=== PATIENT | male | born 1975 | race Caucasian/White ===

== ENCOUNTER 2018-05-12 07:43 | Emergency (ER) | payer SELFPAY ==
[~2018-05-12] VITALS: Ht 162.6 cm; Wt 141.1 kg
[~2018-05-12 07:43] MED LIST: B/P MEDICATION PO; CEPH-507 PO; CLIN150C2 PO; CLIN300C3 PO; METO-370 PO; MTF500T PO; SULF1TAB35 PO; TRAM50TA2 PO
--- OUTSIDE RECORDS SUMMARY | 2018-05-12 07:52 | XMS REPORT ---
Author Author DYANA FAGAN [facility] Address [address] [place] [address] Care Team Providers Care Automotive Service Cashier Name Role Phone DYANA FAGAN Unavailable PROBLEMS Type Condition ICD9-CM Code OIC23-FZ Code Onset Dates Condition Status SNOMED Code Problem Essential (primary) hypertension I10 Active 31944574 Problem Hypertension I10 Active 21536186 Problem Psoriasis L40.9 Active 8094329 ALLERGIES No Known Allergies ENCOUNTERS Encounter Location Date Diagnosis [facility] [address] [id number] Aug, Dental examination Z01.[address] [address] Aug, Dental abscess K04.7 and Hypertension I10 [facility] IN [facility] [address] [address] Aug, Essential (primary) hypertension I10 and Tooth abscess K04.[address] [address] Jan, Cellulitis of left lower extremity L03.116 and Essential ( primary) hypertension I10 [place] [address] [address] June, Encounter for PPD test Z11.1 ; Essential (primary) hypertension I10 and Generalized psoriasis L40.[address] [address] May, Elevated blood pressure I10 [place] [address] [address] May, Impacted cerumen H61.20 ; Essential (primary) hypertension I10 ; Generalized psoriasis L40.1 and Type 2 diabetes mellitus without complications E11.9 [facility] [address] [facility] [id number] [place] [address] May, Sore throat J02.9 ; Elevated blood pressure I10 and Acute streptococcal pharyngitis J02.0 IMMUNIZATIONS No Known Immunizations SOCIAL HISTORY Never Assessed REASON FOR VISIT tooth abscess started a couple weeks ago JStrasserRN PLAN OF CARE Activity Details Follow Up prn Reason: VITAL SIGNS Height 64 in 2016-09-06 Weight 283.8 lbs 2016-09-06 Temperature 98.3 degrees Fahrenheit 2016-09-06 Heart Rate 70 bpm 2016-09-06 Respiratory Rate 22 2016-09-06 BMI 48.71 kg/m2 2016-09-06 Blood pressure systolic 196 mmHg 2016-09-06 Blood pressure diastolic 114 mmHg 2016-09-06 MEDICATIONS Medication Instructions Dosage Frequency Start Date End Date Duration Status Lisinopril 20 mg Orally Once a day 1 tablet 24h Jan, 30 days Active Amoxicillin 500 MG Orally every 8 hrs 1 capsule 8h Aug, Aug, 7 days Active RESULTS No Results PROCEDURES No Known procedures INSTRUCTIONS MEDICATIONS ADMINISTERED No Known Medications MEDICAL (GENERAL) HISTORY Type Description Date Medical History hypertension Medical History type II diabetes Medical History psoriasis Surgical History Tubes in ears Surgical History Tonsillectomy
--- OUTSIDE RECORDS SUMMARY | 2018-05-12 07:52 | XMS REPORT ---
Author GREGORIO Wang [facility] eClinicalWorks Address Unknown Phone Unavailable Care Team Providers Care Casing Crew Pusher Name Role Phone GREGORIO JAVED CP Unavailable Allergies, Adverse Reactions, Alerts Substance Reaction Event Type N.K.D.A. Info Not Available Non Drug Allergy Problems Problem Type Condition Code Onset Dates Condition Status Assessment Generalized psoriasis L40.1 Active Assessment Type 2 diabetes mellitus without complications E11.9 Active Problem Generalized psoriasis L40.1 Active Problem Type 2 diabetes mellitus without complications E11.9 Active Problem Essential (primary) hypertension I10 Active Assessment Impacted cerumen H61.20 Active Assessment Essential (primary) hypertension I10 Active Problem Hypertension I10 Active Problem Psoriasis L40.9 Active Medications Medication Code System Code Instructions Start Date End Date Status Dosage Amoxicillin [facility] [address]-25 500 MG Orally twice a day May 25, 2015 June 04, 2015 1 tablet Lisinopril [facility] [address]-65 20 mg Orally Once a day May 25, 2015 1 tablet Procedures Procedure Coding System Code Date LIPID PANEL CPT-4 26507 May 27, 2015 GLYCATED HEMOGLOBIN TEST CPT-4 26522 May 27, 2015 COMPREHEN METABOLIC PANEL CPT-4 45184 May 27, 2015 VENIPUNCT, ROUTINE* CPT-4 95463 May 27, 2015 Office Visit, New Pt., Level 4 CPT-4 95069 May 27, 2015 Vital Signs Date/Time: May 27, 2015 Temperature 98.3 F Weight 290.6 lbs Height 64 in BMI 49.88 Index Blood Pressure Diastolic 90 mmHg Blood Pressure Systolic 158 mmHg Cardiac Monitoring Heart Rate 88 bpm Results Name Result Date Reference Range Unit Abnormality Flag LIPID PANEL ----HDL Cholesterol 28 86374911 >39 mg/dL L ----VLDL Cholesterol Johann 21 86208811 5-40 mg/dL ----LDL Cholesterol Calc 120 49694156 0-99 mg/dL H ----Cholesterol, Total 169 20150527 100-199 mg/dL ----Triglycerides 106 20061069 0-149 mg/dL A1C (IN HOUSE) ----A1C IN HOUSE 5.7% 20150527 4.3 - 5.6 % ----Previous A1c none available [id number] ----Lot [id number] ----Exp date Apr [id number] ROUTINE VENIPUNCTURE Summary Purpose eClinicalWorks Submission
--- OUTSIDE RECORDS SUMMARY | 2018-05-12 07:52 | XMS REPORT ---
Author Author GREGORIO JAVED Organization [facility] Address [address] [place] [address] Care Team Providers Care Home Energy Consultant Name Role Phone GREGORIO JAVED Unavailable PROBLEMS Type Condition ICD9-CM Code [id number] Code Onset Dates Condition Status SNOMED Code Problem Essential (primary) hypertension I10 Active 02670805 Problem Hypertension I10 Active 60808853 Problem Psoriasis L40.9 Active 2812913 ALLERGIES No Known Allergies ENCOUNTERS Encounter Location Date Diagnosis [facility] [address] [id number] Aug, Dental examination Z01.20 [facility] [address] [place] [address] Aug, Dental abscess K04.7 and Hypertension I10 [facility] [address] [address] Aug, Essential (primary) hypertension I10 and Tooth abscess K04.7 [facility] [address] [address] Jan, Cellulitis of left lower extremity L03.116 and Essential ( primary) hypertension I10 [facility] [address] [address] June, Encounter for PPD test Z11.1 ; Essential (primary) hypertension I10 and Generalized psoriasis L40.[address] [address] May, Elevated blood pressure I10 [facility] [address] [place] [address] May, Impacted cerumen H61.20 ; Essential (primary) hypertension I10 ; Generalized psoriasis L40.1 and Type 2 diabetes mellitus without complications E11.9 [facility] [address] [facility] [id number] [place] [address] May, Sore throat J02.9 ; Elevated blood pressure I10 and Acute streptococcal pharyngitis J02.0 IMMUNIZATIONS No Known Immunizations SOCIAL HISTORY Never Assessed REASON FOR VISIT hypertension- Rhina SCHWARZ PLAN OF CARE Activity Details Follow Up 2 Months Reason: VITAL SIGNS Height 64 in 2016-09-07 Weight 283.8 lbs 2016-09-07 Temperature 99.0 degrees Fahrenheit 2016-09-07 Heart Rate 82 bpm 2016-09-07 Respiratory Rate 20 2016-09-07 BMI 48.71 kg/m2 2016-09-07 Blood pressure systolic 176 mmHg 2016-09-07 Blood pressure diastolic 116 mmHg 2016-09-07 MEDICATIONS Medication Instructions Dosage Frequency Start Date End Date Duration Status Amoxicillin 500 MG Orally every 8 hrs 1 capsule 8h Aug, 7 days Active Lisinopril 20 mg Orally Once a day 1 tablet 24h Jan, 30 days Active RESULTS No Results PROCEDURES No Known procedures INSTRUCTIONS MEDICATIONS ADMINISTERED No Known Medications MEDICAL (GENERAL) HISTORY Type Description Date Medical History hypertension Medical History type II diabetes Medical History psoriasis Surgical History Tubes in ears Surgical History Tonsillectomy
--- OUTSIDE RECORDS SUMMARY | 2018-05-12 07:52 | XMS REPORT ---
Author Author DARELL Mendoza Organization [facility] Address Unknown Care Team Providers Care Sand Digger Name Role Phone DARELL Mendoza Unavailable PROBLEMS Type Condition ICD9-CM Code [id number] Code Onset Dates Condition Status SNOMED Code Problem Type 2 diabetes mellitus without complications E11.9 Active 931395344 Problem Hypertension I10 Active 51214144 Assessment Elevated blood pressure I10 May, Active 77941689 Assessment Acute streptococcal pharyngitis J02.0 May, Active 63632860 Problem Psoriasis L40.9 Active 5173827 Assessment Sore throat J02.9 May, Active 038455500 ALLERGIES Substance Reaction Event Type Date Status N.K.D.A. Unknown Non Drug Allergy May, Unknown SOCIAL HISTORY No smoking Hx information available PLAN OF CARE VITAL SIGNS Height 64 in 2015-05-25 Weight 291.2 lbs 2015-05-25 Heart Rate 88 bpm 2015-05-25 Respiratory Rate 20 2015-05-25 BMI 49.98 kg/m2 2015-05-25 Blood pressure systolic 168 mmHg 2015-05-25 Blood pressure diastolic 108 mmHg 2015-05-25 MEDICATIONS Medication Instructions Dosage Frequency Start Date End Date Duration Status Lisinopril 20 mg Orally Once a day 1 tablet 24h May, 10 days Active Amoxicillin 500 MG Orally twice a day 1 tablet 12h May, May, 10 days Active RESULTS No Results PROCEDURES Procedure Date Ordered Related Diagnosis Body Site STREP A ASSAY W/OPTIC May 25, 2015 Office Visit, New Pt., Level 3 May 25, 2015 IMMUNIZATIONS No Known Immunizations
--- OUTSIDE RECORDS SUMMARY | 2018-05-12 07:52 | XMS REPORT ---
Author Author NATALIE VLILEDA [facility] IN [facility] Address [address] [place] [address] Care Team Providers Care District Court Bailiff Name Role Phone CHRISTIANAVILMA TORRESY Unavailable PROBLEMS Type Condition ICD9-CM Code DYB74-BL Code Onset Dates Condition Status SNOMED Code Problem Essential (primary) hypertension I10 Active 17124454 Problem Hypertension I10 Active 73715114 Problem Psoriasis L40.9 Active 7200926 ALLERGIES No Known Allergies ENCOUNTERS Encounter Location Date Diagnosis [facility] IN [facility] [address] [address] Dec, Cough R05 ; Acute nasopharyngitis J00 and BMI 50.0-59.9, adult Z68.43 [facility] [address] [id number] Aug, Dental examination Z01.20 [facility] [address] [address] Aug, Dental abscess K04.7 and Hypertension I10 [facility] IN [facility] [address] [address] Aug, Essential (primary) hypertension I10 and Tooth abscess K04.7 [facility] [address] [address] Jan, Cellulitis of left lower extremity L03.116 and Essential ( primary) hypertension I10 [facility] [address] [address] June, Encounter for PPD test Z11.1 ; Essential (primary) hypertension I10 and Generalized psoriasis L40.1 [facility] [address] [address] May, Elevated blood pressure I10 [facility] [address] [facility] [id number] [place] [address] May, Impacted cerumen H61.20 ; Essential (primary) hypertension I10 ; Generalized psoriasis L40.1 and Type 2 diabetes mellitus without complications E11.9 [facility] IN [facility] [address] [facility] [id number] [place] [address] May, Sore throat J02.9 ; Elevated blood pressure I10 and Acute streptococcal pharyngitis J02.0 IMMUNIZATIONS No Known Immunizations SOCIAL HISTORY Never Assessed REASON FOR VISIT cough x1 week; coughed hard last night and pulled something in his abdomen/ groin - Ismael [place], diarrhea, trouble sleeping PLAN OF CARE Activity Details Follow Up prn Reason: VITAL SIGNS Height 64 in 2018-01-11 Weight 302.8 lbs 2018-01-11 Temperature 98.3 degrees Fahrenheit 2018-01-11 Heart Rate 90 bpm 2018-01-11 Respiratory Rate 20 2018-01-11 BMI 51.97 kg/m2 2018-01-11 Blood pressure systolic 190 mmHg 2018-01-11 Blood pressure diastolic 124 mmHg 2018-01-11 MEDICATIONS Medication Instructions Dosage Frequency Start Date End Date Duration Status Tessalon Perles 100 mg Orally Three times a day 1 capsule as needed 8h Dec, 10 days Active PredniSONE 20 mg Orally Once a day 1 tablet 24h Dec, 5 days Active RESULTS No Results PROCEDURES No Known procedures INSTRUCTIONS MEDICATIONS ADMINISTERED No Known Medications MEDICAL (GENERAL) HISTORY Type Description Date Medical History hypertension Medical History type II diabetes Medical History psoriasis Surgical History Tubes in ears Surgical History Tonsillectomy
--- OUTSIDE RECORDS SUMMARY | 2018-05-12 07:53 | XMS REPORT ---
Author Author CLARISANAYELI MEAGHAN [facility] Address Unknown Care Team Providers Care Pewter Finisher Name Role Phone MEAGHAN DE ANDA Unavailable PROBLEMS Type Condition ICD9-CM Code QNB19-GY Code Onset Dates Condition Status SNOMED Code Problem Essential (primary) hypertension I10 Active 83941266 Problem Hypertension I10 Active 24147258 Problem Psoriasis L40.9 Active 4099074 ALLERGIES No Known Allergies ENCOUNTERS Encounter Location Date Diagnosis [facility] [address] [id number] Aug, Dental examination Z01.20 [facility] [address] [address] Aug, Dental abscess K04.7 and Hypertension I10 [facility] [address] [address] Aug, Essential (primary) hypertension I10 and Tooth abscess K04.7 [facility] [address] [address] Jan, Cellulitis of left lower extremity L03.116 and Essential ( primary) hypertension I10 [facility] [address] [address] June, Encounter for PPD test Z11.1 ; Essential (primary) hypertension I10 and Generalized psoriasis L40.1 [facility] [address] [address] May, Elevated blood pressure I10 [facility] [address] [address] May, Impacted cerumen H61.20 ; Essential (primary) hypertension I10 ; Generalized psoriasis L40.1 and Type 2 diabetes mellitus without complications E11.9 [facility] [address] [facility] [id number] [place] [address] May, Sore throat J02.9 ; Elevated blood pressure I10 and Acute streptococcal pharyngitis J02.0 IMMUNIZATIONS No Known Immunizations SOCIAL HISTORY Never Assessed REASON FOR VISIT josy PLAN OF CARE Activity Details Follow Up prn Reason:Pt. was referred VITAL SIGNS Height 64 in 2016-09-13 Blood pressure systolic 125 mmHg 2016-09-13 Blood pressure diastolic 78 mmHg 2016-09-13 MEDICATIONS Medication Instructions Dosage Frequency Start Date End Date Duration Status Amoxicillin 500 MG Orally every 8 hrs 1 capsule 8h 7 days Active Lisinopril 20 mg Orally Once a day 1 tablet 24h Jan, 30 days Active Amoxicillin 500 MG Orally every 8 hrs 1 capsule 8h Aug, 7 days Active RESULTS No Results PROCEDURES Procedure Date Ordered Result Body Site LTD ORAL EVALUATION - PROBLEM FOCUS September 13, 2016 INTRAORL-PERIAPICAL 1 FILM 14250 September 13, 2016 INSTRUCTIONS MEDICATIONS ADMINISTERED No Known Medications MEDICAL (GENERAL) HISTORY Type Description Date Medical History hypertension Medical History type II diabetes Medical History psoriasis Surgical History Tubes in ears Surgical History Tonsillectomy
--- OUTSIDE RECORDS SUMMARY | 2018-05-12 07:53 | XMS REPORT | Continuity of Care Document ---
Author Author [facility] Organization [facility] Address Unknown Phone Unavailable Allergies Active Description Code Type Severity Reaction Onset Reported/Identified Relationship to Patient Clinical Status Yes No Known Drug Allergies [id number] Drug Allergy Unknown N/A 08/07/2013 Medications There is no data. Problems Date Dx Coded Attending Type Code Diagnosis Diagnosed By 08/07/2013 RAHUL OSORIO MD Ot 250.00 DIAB WARNER WO COMPL, TYPE II OR UNSPEC TY 08/07/2013 RAHUL OSORIO MD Ot 401.9 HYPERTENSION NOS 08/07/2013 RAHUL OSORIO MD Ot 682.6 CELLULITIS OF LEG 08/07/2013 RAHUL OSORIO MD Ot 682.7 CELLULITIS OF FOOT 02/21/2014 JENNY ELDRIDGE Ot 401.9 HYPERTENSION NOS 02/21/2014 JENNY ELDRIDGE Ot 521.00 UNSPEC DENTAL CARIES 02/21/2014 JENNY ELDRIDGE Ot 522.5 PERIAPICAL ABSCESS 02/21/2014 JENNY ELDRIDGE Ot 525.9 DENTAL DISORDER NOS 02/21/2014 JENNY ELDRIDGE Ot V15.81 HX OF PAST NONCOMPLIANCE 11/08/2015 VERONICA AVILES APRN Ot E11.9 TYPE 2 DIABETES MELLITUS WITHOUT COMPLIC 11/08/2015 VERONICA AVILES APRN Ot L03.116 CELLULITIS OF LEFT LOWER LIMB 11/08/2015 VERONICA AVILES APRN Ot M79.662 PAIN IN LEFT LOWER LEG 11/08/2015 VERONICA AVILES APRN Ot Z79.899 OTHER [facility] (CURRENT) DRUG THERAPY 11/10/2015 VERONICA AVILES APRN Ot E11.9 TYPE 2 DIABETES MELLITUS WITHOUT COMPLIC 11/10/2015 VERONICA AVILES APRN Ot L03.116 CELLULITIS OF LEFT LOWER LIMB 11/10/2015 VERONICA AVILES APRN Ot M79.662 PAIN IN LEFT LOWER LEG 11/10/2015 VERONICA AVILES APRN Ot Z79.899 OTHER [facility] (CURRENT) DRUG THERAPY Procedures There is no data. Results Test Result Range Complete blood count (CBC) with automated white blood cell (WBC) differential - 11/08/15 19:22 Blood leukocytes automated count (number/volume) 9.2 10*3/uL 4.3-11.0 Blood erythrocytes automated count (number/volume) 5.73 10*6/uL 4.35-5.85 Venous blood hemoglobin measurement (mass/volume) 17.4 g/dL 13.3-17.7 Blood hematocrit (volume fraction) 50 % 40-54 Automated erythrocyte mean corpuscular volume 87 [foz_us] 80-99 Automated erythrocyte mean corpuscular hemoglobin (mass per erythrocyte) 30 pg 25-34 Automated erythrocyte mean corpuscular hemoglobin concentration measurement ( mass/volume) 35 g/dL 32-36 Automated erythrocyte distribution width ratio 14.0 % 10.0-14.5 Automated blood platelet count (count/volume) 106 10*3/uL 130-400 Automated blood platelet mean volume measurement 11.7 [foz_us] 7.4-10.4 Automated blood neutrophils/100 leukocytes 79 % 42-75 Automated blood lymphocytes/100 leukocytes 11 % 12-44 Blood monocytes/100 leukocytes 10 % 0-12 Automated blood eosinophils/100 leukocytes 0 % 0-10 Automated blood basophils/100 leukocytes 0 % 0-10 Blood neutrophils automated count (number/volume) 7.3 10*3 1.8-7.8 Blood lymphocytes automated count (number/volume) 1.0 10*3 1.0-4.0 Blood monocytes automated count (number/volume) 0.9 10*3 0.0-1.0 Automated eosinophil count 0.0 10*3/uL 0.0-0.3 Automated blood basophil count (count/volume) 0.0 10*3/uL 0.0-0.1 Comprehensive metabolic panel - 11/08/15 19:22 Serum or plasma sodium measurement (moles/volume) 136 mmol/L 135-145 Serum or plasma potassium measurement (moles/volume) 3.7 mmol/L 3.6-5.0 Serum or plasma chloride measurement (moles/volume) 101 mmol/L 98-107 Carbon dioxide 21 mmol/L 21-32 Serum or plasma anion gap determination (moles/volume) 14 mmol/L 5-14 Serum or plasma urea nitrogen measurement (mass/volume) 16 mg/dL 7-18 Serum or plasma creatinine measurement (mass/volume) 1.31 mg/dL 0.60-1.30 Serum or plasma urea nitrogen/creatinine mass ratio 12 NRG Serum or plasma creatinine measurement with calculation of estimated glomerular filtration rate 60 NRG Serum or plasma glucose measurement (mass/volume) 107 mg/dL 70-105 Serum or plasma calcium measurement (mass/volume) 9.4 mg/dL 8.5-10.1 Serum or plasma total bilirubin measurement (mass/volume) 1.6 mg/dL 0.1-1.0 Serum or plasma alkaline phosphatase measurement (enzymatic activity/volume) 53 U/L 40-136 Serum or plasma aspartate aminotransferase measurement (enzymatic activity/ volume) 32 U/L 5-34 Serum or plasma alanine aminotransferase measurement (enzymatic activity/volume ) 28 U/L 0-55 Serum or plasma protein measurement (mass/volume) 7.7 g/dL 6.4-8.2 Serum or plasma albumin measurement (mass/volume) 3.9 g/dL 3.2-4.5 Blood lactic acid measurement (moles/volume) - 11/08/15 19:30 Blood lactic acid measurement (moles/volume) 0.8 mmol/L 0.5-2.0 Bacterial blood culture - 11/08/15 19:30 Bacterial blood culture NG NRG Bacterial blood culture - 11/08/15 19:48 Bacterial blood culture NG NRG Encounters ACCT No. Visit Date/Time Discharge Status Pt. Type Provider Facility Loc./Unit Complaint [id number] 11/08/2015 19:03:00 11/08/2015 21:00:00 DIS Emergency VERONICA AVILES APRN [facility] ER L LEG PAIN, REDNESS, SWELLING [id number] 02/21/2014 17:03:00 02/21/2014 20:36:00 DIS Emergency JENNY ELDRIDGE [facility] ER DENTAL PAIN [id number] 08/07/2013 20:38:00 08/07/2013 22:25:00 DIS Inpatient DEVON VALENZUELA, RAHUL Stephen [facility] 4TH CELLULITIS L LEG [id number] 05/12/2018 07:43:00 ACT Emergency NANCY VALENZUELA, MICHELLE Diaz [facility] ER FACIAL SWELLING [id number] 01/11/2018 08:30:00 01/11/2018 23:59:59 CLS Outpatient TEGAN VALENZUELA, GREGORIO BURK [facility]
--- OUTSIDE RECORDS SUMMARY | 2018-05-12 07:53 | XMS REPORT ---
Author Author GREGORIO JAVED Organization [employer] Address Unknown Phone Unavailable Care Team Providers Care Inspector Structural Bonding Name Role Phone GREGORIO JAVED CP Unavailable Allergies No Known Allergies Problems Problem Type Condition Code Onset Dates Condition Status Problem Generalized psoriasis L40.1 Active Problem Type 2 diabetes mellitus without complications E11.9 Active Problem Essential (primary) hypertension I10 Active Assessment Elevated blood pressure I10 Active Problem Hypertension I10 Active Problem Psoriasis L40.9 Active Medications Medication Code System Code Instructions Start Date End Date Status Dosage Lisinopril [facility] [id number] 20 mg Orally Once a day May 25, 2015 1 tablet Results No Known Results Summary Purpose eClinicalWorks Submission
[2018-05-12 08:00] VITALS: BP 226/133
--- NOTE | 2018-05-12 08:07 | ED EENT ---
History of Present Illness General Chief Complaint: Dental Problems/Pain Stated Complaint: FACIAL SWELLING Nursing Triage Note: PT CO OF L SIDED DENTAL PAIN AND FACIAL SWELLING STARTED 2 DAYS AGO Source: patient Exam Limitations: no limitations History of Present Illness Date Seen by Provider: May 12, 2018 Time Seen by Provider: 07:48 Initial Comments The patient presents to ER by private conveyance with chief complaint of left facial swelling and pain 4 out of 10. His lower mandible molars and premolars have some dental caries and he had a fractured tooth couple months ago at costal swelling at that time but he was not able to completely follow up with a dental surgeon. He said part of the tooth came out but they told him he would need to see a dental surgeon and since they needed over $100 to be seen he could not afford to go see them. He does not have any medical allergies. He is having no difficulty swallowing secretions or breathing. He says the swelling today just started this morning. He is not having any discharge from the gum line or teeth. No fevers chills nausea vomiting or diarrhea. He does have a history of high blood pressure and was put on some blood pressure medicines at [facility] with Dr. Mckeon but said that he could not afford to get them and did not go back to talk to psychiatric social worker to see about financial adviser or talk to Dr. Mckeon again about changing this prescription. Allergies and Home Medications Allergies Coded Allergies: No Known Drug Allergies (Unverified , 08/07/13) Home Medications No Active Prescriptions or Reported Meds Patient Home Medication List Home Medication List Reviewed: Yes Review of Systems Review of Systems Constitutional: No chills, No diaphoresis, No fever Eyes: Denies Blindness, Denies Blurred Vision Ears: Denies Dizziness, Denies Pain Nose: denies clots, denies congestion, denies pain Mouth: denies clots, denies loose teeth; pain, swelling; denies bloody discharge, denies clear discharge Throat: denies pain, denies swelling, denies neck stiffness Past Qfnndii-Obbmtp-Iciytr Hx Patient Social History Alcohol Use: Denies Use Recreational Drug Use: No Smoking Status: Never a Smoker Recent Foreign Travel: No Contact w/Someone Who Travel: No Recent Infectious Disease Expo: No Recent Hopitalizations: No Immunizations Up To Date Tetanus Booster (TDap): Less than 5yrs Seasonal Allergies Seasonal Allergies: No Past Medical History Surgeries: Yes Ear Surgery Respiratory: No Cardiac: Yes Hypertension Neurological: No Reproductive Disorders: No Sexually Transmitted Disease: No Gastrointestinal: No Musculoskeletal: No Endocrine: Yes Diabetes, Non-Insulin dep Chronic Ear Infection Cancer: No Psychosocial: No Integumentary: Yes Psoriasis Blood Disorders: No Physical Exam Vital Signs Vital Signs - First Documented 05/12/18 07:45 Temp 99.6 Pulse 80 Resp 18 B/P (MAP) 226/133 (164) Pulse Ox 96 Height, Weight, BMI Height: 5'4.00" Weight: 311lbs. oz. 141.324783fh; BMI Method:Stated General Appearance: WD/WN, no apparent distress Eyes: bilateral eye normal inspection, bilateral eye PERRL, bilateral eye EOMI Ears: bilateral ear auricle normal, bilateral ear canal normal, bilateral ear TM normal Nose: normal inspection; No active bleeding Mouth/Throat: other (mild dental caries with a fractured left molar on the mandible. No obvious abscess but there is some swelling of the gingiva and left cheek with mild to moderate tenderness to palpation. No discharge.) Neck: non-tender, full range of motion, supple, normal inspection Cardiovascular: normal peripheral pulses, regular rate, rhythm Respiratory: no respiratory distress, no accessory muscle use; No stridor Progress/Results/Core Measures Results/Orders Vital Signs/I&O 05/12/18 05/12/18 07:45 08:00 Temp 99.6 99.6 Pulse 80 80 Resp 18 18 B/P (MAP) 226/133 (164) 226/133 (164) Pulse Ox 96 96 Blood Pressure Mean: 164 Progress Progress Note : Time: 08:05 Progress Note There is no airway compromise. We can treat his impacted tooth fragment with amoxicillin to try and bring down the swelling. We've recommended Tylenol Motrin for his modest pain as well as topical creams such as lidocaine. We have talked at length about his blood pressure and encourage him to go back and talk to community health about either changing the medication prescribed or getting some Financial Assistance for His Blood Pressure Medicine. We also discussed the fact that he would need to get into a dentist as it will be no final resolution without surgical intervention. We discussed return precautions for stridor, difficulty swallowing fluids etc. We decided there is no benefit to prescribing him a blood pressure medicine if he cannot afford to take it. He is going to go back to [facility] in the next week or 2 and get some help with his blood pressure. We discussed the gravity of untreated blood pressure as high as this. Since he lives at this level and likely his pain is contributing to his elevated blood pressure were not going to try and reduce it in the short-term other than addressing his pain. Departure Impression Primary Impression: Tooth, impacted Additional Impression: Hypertension Qualified Codes: I10 - Essential (primary) hypertension Disposition: 01 HOME, SELF-CARE Condition: Stable Departure-Patient Inst. Decision time for Depature: 08:07 Referrals: [facility] [place] NO,LOCAL PHYSICIAN (PCP) Primary Care Physician Patient Instructions: Fractured Tooth (DC), Impacted Tooth (DC) Add. Discharge Instructions: ict support engineer the amoxicillin and take it 3 times a day with food for the next week. Use warm compresses, Tylenol and ibuprofen as necessary for discomfort in her face. Return to the ER immediately if you begin to experience difficulty breathing or inability to swallow your fluids. Follow-up with your primary care doctor in the next 1-2 weeks to discuss your high blood pressure and seek appropriate treatment. Follow-up with the dental surgeon for ultimate resolution of your dental pain. All discharge instructions reviewed with patient and/or family. Voiced understanding. Scripts Amoxicillin (Amoxicillin) 500 Mg Capsule 500 MG PO TID, #21 CAP 0 Refills Prov: MICHELLE CRUZ 05/12/18 Copy Copies To 1: REENA PEGUERO TITUS J May 12, 2018 08:07
[2018-05-12] MEDS ORDERED: AMOX500C2 PO (08:11)
== END 2018-05-12 08:00 | disposition home or self-care (01) ==
LOC: EDUNIT# 07:43 → ER 07:43
DX: K01.1 Impacted teeth (principal); I10 Essential (primary) hypertension; E11.9 Type 2 diabetes mellitus without complications
CPT/HCPCS: 99282

== ENCOUNTER 2018-10-04 07:51 | Emergency (ER) | payer SELFPAY ==
[~2018-10-04] VITALS: Ht 162.6 cm; Wt 138.8 kg
[~2018-10-04 07:51] MED LIST changes: +AMOX500C2 PO
[2018-10-04] MEDS ORDERED: AMOX500C2 PO (08:16)
--- NOTE | 2018-10-04 08:16 | ED EENT ---
History of Present Illness General Chief Complaint: Facial Problems Stated Complaint: FACIAL SWELLING Source: patient Exam Limitations: no limitations History of Present Illness Date Seen by Provider: Oct 04, 2018 Time Seen by Provider: 07:56 Initial Comments Patient presents to ER by private conveyance with chief complaint of left-sided facial swelling over the past 2-3 days. Does not have significant pain. He does have high blood pressure at baseline and has been out of his medicines for over a month. He has an appointment in 2 days with his primary care doctor to get his blood pressure medicines restarted. He has not been on antibiotics recently. He is not having any discharge fevers nausea or difficulty breathing. Allergies and Home Medications Allergies Coded Allergies: No Known Drug Allergies (Unverified , 08/07/13) Home Medications Amoxicillin 500 Mg Capsule, 500 MG PO TID Prescribed by: MICHELLE CRUZ on 05/12/18 0811 Patient Home Medication List Home Medication List Reviewed: Yes Review of Systems Review of Systems Constitutional: No chills, No diaphoresis Eyes: Denies Blindness, Denies Blurred Vision Ears: Denies Dizziness, Denies Pain Nose: denies clots, denies congestion Mouth: see HPI; denies clots, denies loose teeth; swelling Throat: denies pain, denies swelling Respiratory: No cough, No short of breath Cardiovascular: No chest pain, No edema Gastrointestinal: No nausea, No vomiting Past Oycyzse-Vkhvvr-Femioj Hx Patient Social History Smoking Status: Never a Smoker Recent Foreign Travel: No Contact w/Someone Who Travel: No Recent Hopitalizations: No Immunizations Up To Date Tetanus Booster (TDap): Less than 5yrs Seasonal Allergies Seasonal Allergies: No Past Medical History Surgeries: Yes Ear Surgery Respiratory: No Cardiac: Yes Hypertension Neurological: No Reproductive Disorders: No Sexually Transmitted Disease: No Gastrointestinal: No Musculoskeletal: No Endocrine: Yes Diabetes, Non-Insulin dep Chronic Ear Infection Cancer: No Psychosocial: No Integumentary: Yes Psoriasis Blood Disorders: No Physical Exam Height, Weight, BMI Height: 5'4.00" Weight: 311lbs. oz. 141.253881el; BMI Method:Stated General Appearance: WD/WN, no apparent distress Eyes: bilateral eye normal inspection, bilateral eye PERRL, bilateral eye EOMI Ears: bilateral ear auricle normal, bilateral ear canal normal Nose: normal inspection; No active bleeding, No discharge Mouth/Throat: other (left lower molar posteriorly has overt dental caries without area of fluctuance or pointing. There is swelling of the left buccal t issues. No airway compromise) Neck: non-tender, full range of motion, normal inspection Respiratory: no respiratory distress, no accessory muscle use Progress/Results/Core Measures Progress Progress Note : Time: 08:12 Progress Note He doesn't know what blood pressure medicine he is on so rather than starting something for 2 days we will let him keep his follow-up appointment outpatient. He's having no cardiac symptoms at this time. No airway compromise. Put him on amoxicillin and follow-up Tuesday with primary care. His blood pressure has probably been elevated for some time and it would be unwise to try and make acute short-term changes. Departure Impression Primary Impression: Facial swelling Additional Impressions: Dental caries Hypertension Qualified Codes: I10 - Essential (primary) hypertension Disposition: HOME, SELF-CARE Condition: Stable Departure-Patient Inst. Decision time for Depature: 08:15 Referrals: NO,LOCAL PHYSICIAN (PCP/Family) Primary Care Physician Patient Instructions: Tooth Decay, Adult (DC) Add. Discharge Instructions: Start the amoxicillin one capsule 3 times a day for the next week. Follow-up with the dental surgeon. Keep your follow-up appointment with primary care about your blood pressure. All discharge instructions reviewed with patient and/or family. Voiced understanding. Scripts Amoxicillin (Amoxicillin) 500 Mg Capsule 500 MG PO TID, #21 CAP 0 Refills Prov: MICHELLE CRUZ 10/04/18 MICHELLE CRUZ Oct 04, 2018 08:16
[2018-10-04 08:39] VITALS: BP 200/115
== END 2018-10-04 08:39 | disposition home or self-care (01) ==
LOC: EDUNIT# 07:51 → ER 07:52
DX: K02.9 Dental caries, unspecified (principal); I10 Essential (primary) hypertension; R22.0 Localized swelling, mass and lump, head; E11.9 Type 2 diabetes mellitus without complications; Z91.14 Patient's other noncompliance with medication regimen
CPT/HCPCS: 99283

== ENCOUNTER 2019-02-09 10:47 | Inpatient (IN) | payer SELFPAY ==
[~2019-02-09] VITALS: Ht 162.6 cm; Wt 137.5 kg
[2019-02-09 11:18] LABS: BASOPHILS % (AUTO) 0 % (0-10); EOSINOPHILS # (AUTO) 0.1 10^3/uL (0.0-0.3); EOSINOPHILS % (AUTO) 1 % (0-10); HEMATOCRIT 49 % (40-54); HEMOGLOBIN 17.2 G/DL (13.3-17.7); LYMPHOCYTES % (AUTO) 11 % (12-44); MEAN CORPUSCULAR HEMOGLOBIN 30 PG (25-34); MEAN CORPUSCULAR HGB CONC 35 G/DL (32-36); MEAN CORPUSCULAR VOLUME 86 FL (80-99); MEAN PLATELET VOLUME 11.2 FL (7.4-10.4); MONOCYTES # (AUTO) 0.8 X 10^3 (0.0-1.0); MONOCYTES % (AUTO) 9 % (0-12); NEUTROPHILS # (AUTO) 6.8 X 10^3 (1.8-7.8); NEUTROPHILS % (AUTO) 79 % (42-75); PLATELET COUNT 135 10^3/uL (130-400); WHITE BLOOD COUNT 8.6 10^3/uL (4.3-11.0)
--- NOTE | 2019-02-09 11:18 | ED EENT ---
History of Present Illness General Chief Complaint: Facial Problems Stated Complaint: SWOLLEN FACE/POSS BAD TOOTH Nursing Triage Note: states he has swelling to the L side of face from a bad tooth that needs removed, states this swelling started yesterday, also states that he ate a Dorito three days ago that got stuck in the bad tooth and has not been able to get the chip pieces removed Source: patient Exam Limitations: no limitations (MATT AGUILLON MED STUDENT) History of Present Illness Date Seen by Provider: Feb 09, 2019 Time Seen by Provider: 10:46 Initial Comments Pt ambulated into ED with CC of facial swelling secondary to eating a Dorito chip that got caught in a bad tooth four days ago. Swelling began three days ago and has progressively increased. Denies pain but endorses pressure rated 2/10 associated with mild difficulty breathing when laying down, difficulty seeing out of his left eye due to degree of swelling and decreased hearing in left ear. Denies fever, chills, nausea, vomiting. Has previously presented to [facility] dentists for this tooth but they instructed him to find an oral-maxillofacial surgeon due to severity of erosion to tooth. Timing/Duration: gradual, last week Severity: moderate Location: mouth, dental Prearrival Treatment: no prearrival treatment Modifying Factors: Worse With Lying Down Associated Symptoms: No cough, No fever, No poor fluid intake, No poor solids intake; tooth pain (MATT AGUILLON MED STUDENT) Initial Comments Here with report of several days of increasing swelling to the left side of the face. Pain with opening the mouth. Swelling extends below the angle of the jaw and up to the left eye. He also has hypertension that is uncontrolled and states that he doesn't have insurance and was unable to get his meds. He's been off his blood pressure medicines for a long time now. Used to be seen with Dr. Marino and states he will not go to [facility]. (EREN LAWRENCE MD) Allergies and Home Medications Allergies Coded Allergies: No Known Drug Allergies (Unverified , 08/07/13) Patient Home Medication List Home Medication List Reviewed: Yes (MATT AGUILLON MED STUDENT) Home Medication List Reviewed: Yes (EREN LAWRENCE MD) Review of Systems Review of Systems Constitutional: No chills, No fever, No malaise Eyes: Denies Decreased Acuity, Denies Pain Ears: Denies Pain, Denies Bloody Discharge, Denies Clear Discharge, Denies Purulent Discharge; Other (decreased acuity ) Nose: denies epistaxis, denies pain Mouth: see HPI, pain (pressure), swelling Throat: denies pain; swelling Respiratory: No cough; dyspnea on exertion; No short of breath Cardiovascular: No chest pain, No edema Gastrointestinal: No abdominal pain, No constipation, No diarrhea, No nausea, No vomiting Musculoskeletal: No back pain, No joint pain Skin: No lesions, No lumps; pruritus, rash (previously dx w/ psoriasis) Neurological: Denies Anxiety, Denies Depressed Hematologic/Lymphatic: Denies Blood Clots, Denies Easy Bruising (MATT AGUILLON MED STUDENT) All Other Systems Reviewed Negative Unless Noted: Yes (EREN LAWRENCE MD) Past Zdcxgwd-Pboyvb-Jhbdfe Hx Past Med/Social Hx: Reviewed Nursing Past Med/Soc Hx (EREN LAWRENCE MD) Patient Social History Alcohol Use: Denies Use Recreational Drug Use: No 2nd Hand Smoke Exposure: No Recent Foreign Travel: No Contact w/Someone Who Travel: No Recent Infectious Disease Expo: No Recent Hopitalizations: No (MATT AGUILLON MED STUDENT) Immunizations Up To Date Tetanus Booster (TDap): Less than 5yrs (MATT AGUILLON MED STUDENT) Seasonal Allergies Seasonal Allergies: No (MATT AGUILLON MED STUDENT) Past Medical History Surgeries: Yes Ear Surgery, Tonsillectomy Respiratory: Yes Sleep Apnea Cardiac: Yes Hypertension Neurological: No Reproductive Disorders: No Sexually Transmitted Disease: No Genitourinary: No Gastrointestinal: No Musculoskeletal: No Endocrine: Yes Diabetes, Non-Insulin dep Chronic Ear Infection Cancer: No Psychosocial: No Integumentary: Yes Psoriasis Blood Disorders: No (MATT AGUILLON MED STUDENT) Family Medical History Reviewed Nursing Family Hx (EREN LAWRENCE MD) Heart Disease, Diabetes (MATT AGUILLON MED STUDENT) Physical Exam Vital Signs Vital Signs - First Documented 02/09/19 10:52 Temp 37.0 Pulse 103 Resp 22 B/P (MAP) 221/139 (166) (EREN LAWRENCE MD) Height, Weight, BMI Height: 5'4.00" Weight: 306lbs. oz. 138.225117nn; 53.00 BMI Method:Stated General Appearance: no apparent distress, obese Eyes: bilateral eye PERRL, bilateral eye EOMI Ears: bilateral ear canal normal, bilateral ear TM bulging (purulent) Nose: normal inspection, other (beefy red septum) Mouth/Throat: dental tenderness, mandibular swelling, maxillary swelling, pharynx swelling, other (absent first left lower molar. diffuse swelling and tenderness of cheek ) Neck: non-tender, supple Cardiovascular: regular rate, rhythm (distant heart sounds due to body habitus ), no murmur Respiratory: chest non-tender, lungs clear (distant ), normal breath sounds, no respiratory distress, no accessory muscle use Gastrointestinal: non tender, soft Neurologic/Psychiatric: alert, oriented x 3 Skin: normal color, warm/dry (MATT AGUILLON,MED STUDENT) General Appearance: WD/WN, no apparent distress, obese Mouth/Throat: dental tenderness, mandibular swelling, other (absent first left lower molar. diffuse swelling and tenderness of cheek . Left facial swelling noted from left eye down to below angle of jaw on the left. Induration noted within the left cheek at the angle of the jaw.) Respiratory: lungs clear (distant ), normal breath sounds Gastrointestinal: non tender, soft Neurologic/Psychiatric: alert, oriented x 3 Skin: normal color, warm/dry (EREN LAWRENCE MD) Progress/Results/Core Measures Results/Orders Lab Results Laboratory Tests Test 02/09/19 11:03 Range/Units White Blood Count 8.6 4.3-11.0 10^3/uL Red Blood Count 5.74 4.35-5.85 10^6/uL Hemoglobin 17.2 13.3-17.7 G/DL Hematocrit 49 40-54 % Mean Corpuscular Volume 86 80-99 FL Mean Corpuscular Hemoglobin 30 25-34 PG Mean Corpuscular Hemoglobin Concent 35 32-36 G/DL Red Cell Distribution Width 14.0 10.0-14.5 % Platelet Count 135 130-400 10^3/uL Mean Platelet Volume 11.2 H 7.4-10.4 FL Neutrophils (%) (Auto) 79 H 42-75 % Lymphocytes (%) (Auto) 11 L 12-44 % Monocytes (%) (Auto) 9 0-12 % Eosinophils (%) (Auto) 1 0-10 % Basophils (%) (Auto) 0 0-10 % Neutrophils # (Auto) 6.8 1.8-7.8 X 10^3 Lymphocytes # (Auto) 1.0 1.0-4.0 X 10^3 Monocytes # (Auto) 0.8 0.0-1.0 X 10^3 Eosinophils # (Auto) 0.1 0.0-0.3 10^3/uL Basophils # (Auto) 0.0 0.0-0.1 10^3/uL Prothrombin Time 14.8 H 12.2-14.7 SEC INR Comment 1.1 0.8-1.4 Activated Partial Thromboplast Time 31 24-35 SEC Sodium Level 137 135-145 MMOL/L Potassium Level 4.3 3.6-5.0 MMOL/L Chloride Level 103 98-107 MMOL/L Carbon Dioxide Level 24 21-32 MMOL/L Anion Gap 10 5-14 MMOL/L Blood Urea Nitrogen 8 7-18 MG/DL Creatinine 0.94 0.60-1.30 MG/DL Estimat Glomerular Filtration Rate > 60 BUN/Creatinine Ratio 9 Glucose Level 153 H 70-105 MG/DL Lactic Acid Level 1.02 0.50-2.00 MMOL/L Calcium Level 9.2 8.5-10.1 MG/DL Corrected Calcium 9.0 8.5-10.1 MG/DL Total Bilirubin 1.2 H 0.1-1.0 MG/DL Aspartate Amino Transf (AST/SGOT) 20 5-34 U/L Alanine Aminotransferase (ALT/SGPT) 22 0-55 U/L Alkaline Phosphatase 76 40-136 U/L Total Protein 7.8 6.4-8.2 GM/DL Albumin 4.3 3.2-4.5 GM/DL (EREN LAWRENCE MD) My Orders Orders - EREN LAWRENCE MD Cbc With Automated Diff (02/09/19 11:10) Comprehensive Metabolic Panel (02/09/19 11:10) Blood Culture (02/09/19 11:10) Sputum Culture (02/09/19 11:10) Protime With Inr (02/09/19 11:10) Partial Thromboplastin Time (02/09/19 11:10) Chest 1 View, Ap/Pa Only (02/09/19 11:10) Ed Iv/Invasive Line Start (02/09/19 11:10) Vital Signs Adult Sepsis Patie Q15M (02/09/19 11:10) O2 (02/09/19 11:10) Remove Rings In Anticipation O (02/09/19 11:10) Lactic Acid Analyzer (02/09/19 11:10) Ct Maxillofacial W (02/09/19 11:51) Ct Neck (Soft Tissue) W (02/09/19 11:51) Iohexol Injection (Omnipaque 350 Mg/Ml 1 (02/09/19 12:00) Received Contrast (Hold Metformin- Contr (02/09/19 12:00) Sodium Chloride Flush (Catheter Flush Sy (02/09/19 12:00) Ns (Ivpb) (Sodium Chloride 0.9% Ivpb Bag (02/09/19 12:00) Ceftriaxone For Iv Use (Rocephin For I (02/09/19 13:45) Hydralazine Injection (Apresoline Inject (02/09/19 13:45) (EREN LAWRENCE MD) Medications Given in ED Current Medications Medications Dose Ordered Sig/Varinder Route Start Time Stop Time Status Last Admin Dose Admin Ceftriaxone Sodium 1000 mg/ Sterile Water 10 ml @ 200 mls/hr ONCE ONCE IV 02/09/19 13:45 02/09/19 13:47 DC 02/09/19 14:06 200 MLS/HR Hydralazine HCl 10 mg ONCE ONCE IV 02/09/19 13:45 02/09/19 13:46 DC 02/09/19 13:55 10 MG Iohexol 100 ml ONCE ONCE IV 02/09/19 12:00 02/09/19 12:01 DC 02/09/19 12:10 75 ML Sodium Chloride 10 ml NEEDED PRN IV 02/09/19 12:00 02/09/19 12:10 10 ML Sodium Chloride 100 ml ONCE ONCE IV 02/09/19 12:00 02/09/19 12:01 DC 02/09/19 12:10 80 ML (EREN LAWRENCE MD) Vital Signs/I&O 02/09/19 10:52 Temp 37.0 Pulse 103 Resp 22 B/P (MAP) 221/139 (166) (EREN LAWRENCE MD) Blood Pressure Mean: 166 Progress Progress Note : Time: 11:12 Progress Note Seen and evaluated. Ordered CBC and CMP. Due to extent of soft tissue swelling, ordering head and neck CT. (MATT AGUILLON,MED STUDENT) Progress Note : Progress Note I had seen and evaluated the patient and agree with above except as indicated. Have directed the plan of care. IV, labs, blood cultures and lactic acid ordered. CT face and neck soft tissue with contrast ordered. Chest x-ray ordered. Normal saline 1 L bolus. 1400: I discussed the case with Dr. Post and she accepts patient for admission, inpatient status. Rocephin 1 g IV ordered and hydralazine 10 mg IV ordered. Findings and concerns discussed with patient who agree with plan. (EREN LAWRENCE MD) Diagnostic Imaging Diagonstic Imaging: Xray Plain Films/CT/US/NM/MRI: chest Comments [facility] [place] [place] NAME: ZIA SHETTYJOSE RAMON Hamilton [facility] REC#: [id number] PT STATUS: REG ER : 1975 PHYSICIAN: EREN LAWRENCE MD ADMIT DATE: 02/09/19/ER Signed Date of Exam:02/09/19 CHEST 1 VIEW, AP/PA ONLY Indication: Facial swelling Portable chest 11:26 AM Heart size and pulmonary vascularity are normal. Lungs are clear. There are no effusions or pneumothoraces. IMPRESSION: Negative chest Dictated by: Dictated on workstation # [id number] Dict: 02/09/19 1132 Trans: 02/09/19 1133 TB [id number] Interpreted by: EREN REEVES MD Electronically signed by: EREN REEVES MD 02/09/19 1133 Diagonstic Imaging: CT Plain Films/CT/US/NM/MRI: other (Facial and neck soft tissue) Comments [facility] [place] [place] NAME: DIOGENESELIJAH Joy [facility] REC#: [id number] PT STATUS: REG ER : 1975 PHYSICIAN: EREN LAWRENCE MD ADMIT DATE: 02/09/19/ER Draft Date of Exam:02/09/19 CT NECK (SOFT TISSUE) W Clinical indication: Patient with left-sided neck, face, and orbits swelling. Patient has surgical history of tonsils removed and tympanic membrane tubes. Exams: 1: Axial CT scan of the maxillofacial structures performed with 75 cc of Omnipaque 350 IV contrast. Coronal and sagittal reformatted images are created. Auto Exposure Controls were utilized during the CT exam to meet ALARA standards for radiation dose reduction. 2: Axial CT scan of the neck soft tissue performed with IV contrast in conjunction with maxillofacial CT scan. Sagittal and coronal reformatted images were created. Auto Exposure Controls were utilized during the CT exam to meet ALARA standards for radiation dose reduction. Comparison: None. Findings: Maxillofacial CT and neck soft tissue CT: Limited visualization of the intracranial structures show no significant abnormality. There is no abnormal intracranial enhancement. There is a moderate amount of extracranial soft tissue swelling in the left malar and left perimandibular region. The soft tissue fat stranding extends partially down the left and anterior aspect of the neck. There is slight thickening of the left platysmas muscle. There is no peripherally enhancing fluid collection and no evidence of abscess. There is mild enlargement of the lateral left masseter muscle, likely related to adjacent inflammation. There is bilateral neck mildly prominent lymph nodes. There is a 1.7 cm x 1.1 cm marker left level Ib submandibular lymph node. There is poor dentition seen involving the maxillary and mandibular teeth. There is an area of bony erosions adjacent to the root of the mandibular left third molar tooth with a small bony tunnel defect seen inferiorly through the mandible and into the left submandibular space region. There are also severe erosions and truncated appearance of the mandibular left third molar tooth. This finding is concerning for the culprit of the left neck and maxillofacial soft tissue swelling. There is phlegmonous soft tissue and small amount of free fluid adjacent to the posterior body of the left mandible adjacent to this tooth. There are bony erosions about the roots of the mandibular right third molar tooth. There are also significant erosions of the crown of this tooth. There is dental caries seen involving the maxillary right canine tooth. There is minimal lucency adjacent to the mandibular left second molar tooth. There is mild mucosal thickening involving the ethmoid sinus and minimal mucosal thickening involving the left maxillary sinus. Slightly hypo-pneumatized bilateral mastoid air cells which are clear. The bilateral parotid glands, bilateral submandibular glands and thyroid gland show no significant abnormality. The neck vascular structures are grossly unremarkable. The nasopharynx, oropharynx, hypopharynx, laryngeal soft tissue structures are unremarkable. Visualized upper lung benjamin are clear. There are hypertrophic spurs involving the cervical spine and straightening of the cervical spine. Impression: 1: There is poor dentition with multiple dental caries. There are significant bony erosions about the root of the mandibular left third molar tooth with severe erosions of the crown of this tooth. There is also a bony area of cortical disruption and tunneling inferiorly through the posterior body of the left mandible in the region of the mandibular left third molar tooth. There is moderate amount of phlegmonous soft tissue, fat stranding and inflammation in the left maxillofacial/perimandibular region and also extends along the left anterior aspect of the neck. There is no evidence of abscess. These findings are likely all odontogenic in origin. 2: There is bilateral cervical lymphadenopathy. 3: The remainder of this exam shows no other significant abnormality. Availability of this report was relayed to an emergency room nurse for Dr. Eren Lawrence via the telephone on 02/09/2019 at 1300 hours. Dictated on workstation # [id number] Dict: 02/09/19 1249 Trans: 02/09/19 1329 [facility] [id number] Interpreted by: RAUDEL KOWALSKI MD Electronically signed by: (EREN LAWRENCE MD) Departure Communication (Admissions) Time/Spoke to Admitting Phy: 14:00 (EREN LAWRENCE MD) Impression Primary Impression: Facial cellulitis Additional Impression: Uncontrolled hypertension Disposition: ADMITTED INPATIENT Condition: Stable Admissions Decision to Admit Reason: Admit from ER (Trauma) Decision to Admit/Date: Feb 09, 2019 Time/Decision to Admit Time: 14:00 (EREN LAWRENCE MD) Departure-Patient Inst. Referrals: NO,LOCAL PHYSICIAN (PCP/Family) Primary Care Physician MATT AGUILLON,MED STUDENT Feb 09, 2019 11:18 EREN LAWRENCE MD Feb 09, 2019 13:38
[2019-02-09 11:29] LABS: INR 1.1 (0.8-1.4); PROTHROMBIN TIME PATIENT 14.8 SEC (12.2-14.7)
--- NOTE | 2019-02-09 11:35 | Diagnostic Imaging Report ---
Indication: Facial swelling Portable chest 11:26 AM Heart size and pulmonary vascularity are normal. Lungs are clear. There are no effusions or pneumothoraces. IMPRESSION: Negative chest Dictated by: Dictated on workstation # [id number]
[2019-02-09 11:37] LABS: ALANINE AMINOTRANSFERASE 22 U/L (0-55); ALBUMIN 4.3 GM/DL (3.2-4.5); ALKALINE PHOSPHATASE 76 U/L (40-136); BILIRUBIN,TOTAL 1.2 MG/DL (0.1-1.0); BUN/CREATININE RATIO 9; CALCIUM 9.2 MG/DL (8.5-10.1); CARBON DIOXIDE 24 MMOL/L (21-32); CHLORIDE 103 MMOL/L (98-107); CREATININE SERUM 0.94 MG/DL (0.60-1.30); GFR ESTIMATED > 60; GLUCOSE 153 MG/DL (70-105); POTASSIUM 4.3 MMOL/L (3.6-5.0); SODIUM 137 MMOL/L (135-145); TOTAL PROTEIN 7.8 GM/DL (6.4-8.2)
[2019-02-09] MEDS ORDERED: IOHEXOL 350 MG/ML 100 ML (OMNIPAQUE 350) VIAL IV ONE (12:00)
[2019-02-09] MEDS ORDERED: HOLD METFORMIN - RECEIVED CONTRAST 20 ML VIAL IV SCH (12:00)
[2019-02-09] MEDS ORDERED: CATHETER FLUSH 10 ML SYR IV PRN ×2 (12:00→15:15)
[2019-02-09] MEDS ORDERED: NS 100 ML (IVPB) BAG IV ONE (12:00)
--- NOTE | 2019-02-09 13:30 | Diagnostic Imaging Report ---
Clinical indication: Patient with left-sided neck, face, and orbits swelling. Patient has surgical history of tonsils removed and tympanic membrane tubes. Exams: 1: Axial CT scan of the maxillofacial structures performed with 75 cc of Omnipaque 350 IV contrast. Coronal and sagittal reformatted images are created. Auto Exposure Controls were utilized during the CT exam to meet ALARA standards for radiation dose reduction. 2: Axial CT scan of the neck soft tissue performed with IV contrast in conjunction with maxillofacial CT scan. Sagittal and coronal reformatted images were created. Auto Exposure Controls were utilized during the CT exam to meet ALARA standards for radiation dose reduction. Comparison: None. Findings: Maxillofacial CT and neck soft tissue CT: Limited visualization of the intracranial structures show no significant abnormality. There is no abnormal intracranial enhancement. There is a moderate amount of extracranial soft tissue swelling in the left malar and left perimandibular region. The soft tissue fat stranding extends partially down the left and anterior aspect of the neck. There is slight thickening of the left platysmas muscle. There is no peripherally enhancing fluid collection and no evidence of abscess. There is mild enlargement of the lateral left masseter muscle, likely related to adjacent inflammation. There is bilateral neck mildly prominent lymph nodes. There is a 1.7 cm x 1.1 cm marker left level Ib submandibular lymph node. There is poor dentition seen involving the maxillary and mandibular teeth. There is an area of bony erosions adjacent to the root of the mandibular left third molar tooth with a small bony tunnel defect seen inferiorly through the mandible and into the left submandibular space region. There are also severe erosions and truncated appearance of the mandibular left third molar tooth. This finding is concerning for the culprit of the left neck and maxillofacial soft tissue swelling. There is phlegmonous soft tissue and small amount of free fluid adjacent to the posterior body of the left mandible adjacent to this tooth. There are bony erosions about the roots of the mandibular right third molar tooth. There are also significant erosions of the crown of this tooth. There is dental caries seen involving the maxillary right canine tooth. There is minimal lucency adjacent to the mandibular left second molar tooth. There is mild mucosal thickening involving the ethmoid sinus and minimal mucosal thickening involving the left maxillary sinus. Slightly hypo-pneumatized bilateral mastoid air cells which are clear. The bilateral parotid glands, bilateral submandibular glands and thyroid gland show no significant abnormality. The neck vascular structures are grossly unremarkable. The nasopharynx, oropharynx, hypopharynx, laryngeal soft tissue structures are unremarkable. Visualized upper lung benjamin are clear. There are hypertrophic spurs involving the cervical spine and straightening of the cervical spine. Impression: 1: There is poor dentition with multiple dental caries. There are significant bony erosions about the root of the mandibular left third molar tooth with severe erosions of the crown of this tooth. There is also a bony area of cortical disruption and tunneling inferiorly through the posterior body of the left mandible in the region of the mandibular left third molar tooth. There is moderate amount of phlegmonous soft tissue, fat stranding and inflammation in the left maxillofacial/perimandibular region and also extends along the left anterior aspect of the neck. There is no evidence of abscess. These findings are likely all odontogenic in origin. 2: There is bilateral cervical lymphadenopathy. 3: The remainder of this exam shows no other significant abnormality. Availability of this report was relayed to an emergency room nurse for Dr. Eren Jackson via the telephone on 02/09/2019 at 1300 hours. Dictated by: Dictated on workstation # [id number]
[2019-02-09] MEDS ORDERED: hydrALAZINE (APESOLINE) 20 MG/ML VIAL IV ONE (13:45)
[2019-02-09] MEDS ORDERED: cefTRIAXone FOR IV USE 1,000 MG in WATER (STERILE) FOR INJECTION 10 ML IV ONE (13:45)
[2019-02-09] MEDS ORDERED: cloNIDine 0.2 MG (CATAPRES) TAB ONE (14:24)
[2019-02-09] MEDS ORDERED: ONDANSETRON 4 MG/2 ML (SDV) Z0FRAN IV PRN ×2 (15:15→16:00)
[2019-02-09 16:00] VITALS: BP 171/101
[2019-02-09] MEDS ORDERED: MILK OF MAGNESIA 400 MG/5 ML 30 ML UDC PO PRN (16:00)
[2019-02-09] MEDS ORDERED: ANTACID SUSP 30 ML UDC (MYLANTA) PO PRN (16:00)
[2019-02-09] MEDS ORDERED: amLODIPine 10 MG (NORVASC) TAB PO NR (16:00)
[2019-02-09] MEDS ORDERED: BENZONATATE 100 MG (TESSALON) CAPSULE PO PRN (16:00)
[2019-02-09] MEDS ORDERED: ACETAMINOPHEN 325 MG TABLET PO PRN (16:00)
[2019-02-09] MEDS ORDERED: MELATONIN 3 MG TABLET PO PRN (16:00)
--- NOTE | 2019-02-09 16:03 | History & Physical-Hospitalist ---
[facility] 02/09/19 4:03pm: History of Present Illness HPI/Chief Complaint C/C: left sided facial swelling Alexi is a 43 y/o male that presented to [facility] due to left sided facial swelling. The patients states he has had similar episodes like this before but never to this extent. He states he has a rotten wisdom tooth that has been bothering him for sometime. He usually sees the community [facility] and gets prescription for amoxicillin to clear it up. He states that eating on that side is difficult and makes it worse and nothing outside of the antibiotics has helped. He denies pain at this time and denies any radiating or associating symptoms. Source: patient Date Seen 02/09/19 Time Seen by a Provider: 16:07 Attending Physician Elizabeth Post MD PCP No,Local Physician Referring Physician Date of Admission Feb 09, 2019 at 14:00 Home Medications & Allergies Home Medications Reviewed patient Home Medication Reconciliation performed by pharmacy medication reconciliations optical fabrication technician and/or nursing. Patients Allergies have been reviewed. Allergies Allergies Coded Allergies No Known Drug Allergies (Unverified08/07/13) Past [id number] Hx Past Med/Social Hx: Reviewed Nursing Past Med/Soc Hx Patient Social History Employed/Student: part-time employed Alcohol Use: Denies Use Recreational Drug Use: No 2nd Hand Smoke Exposure: No Recent Foreign Travel: No Contact w/other who traveled: No Recent Hopitalizations: No Recent Infectious Disease Expo: No Immunizations Up To Date Tetanus Booster (TDap): Less than 5yrs Seasonal Allergies Seasonal Allergies: No Past Medical History Surgeries: Ear Surgery, Tonsillectomy Cardiac: Hypertension Reproductive: No Sexually Transmitted Disease: No Endocrine: Diabetes, Non-Insulin dep HEENT: Chronic Ear Infection Skin/Integumentary: Psoriasis History of Blood Disorders: No Family History Reviewed Nursing Family Hx Heart Disease, Diabetes Review of Systems Constitutional: no symptoms reported EENTM: hearing loss, dental problems, mouth swelling Respiratory: no symptoms reported Cardiovascular: no symptoms reported Gastrointestinal: no symptoms reported, other (does have psoarisis ) Genitourinary: no symptoms reported Musculoskeletal: no symptoms reported Skin: other (Psoaris of the abdomen and back ) Psychiatric/Neurological: No Symptoms Reported Physical Exam Physical Exam Vital Signs Vital Signs - First Documented 02/09/19 10:52 Temp 37.0 Pulse 103 Resp 22 B/P (MAP) 221/139 (166) Capillary Refill : Less Than 3 Seconds Height, Weight, BMI Height: 5'4.00" Weight: 306lbs. oz. 138.306264pv; 53.00 BMI Method:Stated General Appearance: No Apparent Distress, Obese Eyes: Bilateral Eye PERRL, Bilateral Eye EOMI HEENT: PERRL/EOMI, Other (Patient has left side facial inflammation that is prominent ) Neck: Non Tender, Supple Respiratory: Chest Non Tender, No Accessory Muscle Use, No Respiratory Distress Cardiovascular: Regular Rate, Rhythm, Normal Peripheral Pulses Gastrointestinal: Normal Bowel Sounds, No Organomegaly, Soft, Distended Rectal: Deferred Back: Other (Psoarisis) Extremity: Normal Capillary Refill, No Calf Tenderness, Pedal Edema Neurologic/Psychiatric: Alert, Oriented x3, Normal Mood/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 Assessment/Plan Admission Diagnosis Periodontal infection HTN Urgency Assessment and Plan Periodontal Infection - Started on Ceftriaxone and clindamycin - will continue to monitor labs - will consider followup imaging if the infection is not clearing up - soft diet, patient is unable to open mouth completely - start probiotics - sputum and blood cultures pending HTN urgency with baseline chronic HTN - Amlodipine 10mg QD - Nitro-pace PRN Psoriases - manage outpatient with PCP ELIZABETH POST MD 02/09/19 8:16pm: Assessment/Plan Admission Diagnosis Admission Status: Inpatient Order (span 2 midnights) Reason for Inpatient Admission: IV antibiotics Assessment and Plan Profound cellulitis of face with orthodontic origin. Will contineu Rocephin and Clindamycin. Await cultures. Will start oral antihypertensives as likely has chronic long standing HTN. Will lower Bp slowing. Discussed with patient. All questions answered. Supervisory-Addendum Brief Verification & Attestation Participated in pt care: history, MDM, physical Personally performed: exam, history, MDM, supervision of care Care discussed with: Medical Student Procedures: n/a Results interpretation: Verified all documentation Verification and Attestation of Medical Student E/M Service A medical student performed and documented this service in my presence. I reviewed and verified all information documented by the medical student and made modifications to such information, when appropriate. I personally performed the physical exam and medical decision making. Elizabeth Post, Feb 09, 2019,20:15 [facility] Feb 09, 2019 4:03 pm ELIZABETH POST MD Feb 09, 2019 8:16 pm
[2019-02-09] MEDS ORDERED: FLU QUADRIvalent (5+ YOA) 2019-2020 (AFLURIA) 0.5 ML IM ONE (16:30)
[2019-02-09 16:43] VITALS: BP 144/75
[2019-02-09] MEDS: CLINDAMYCIN 900 MG/50 ML IVPB 50 ML IV SCH ×2 (17:34→22:44)
[2019-02-09 20:00] VITALS: BP 139/90
[2019-02-09] MEDS: CATHETER FLUSH 10 ML SYR IV SCH (22:44)
[2019-02-10] VITALS (7 sets, daily range): BP systolic 138–192; BP diastolic 86–110
[2019-02-10] MEDS: CLINDAMYCIN 900 MG/50 ML IVPB 50 ML IV SCH ×3 (06:47→21:33)
[2019-02-10] MEDS: CATHETER FLUSH 10 ML SYR IV SCH ×3 (06:47→22:00)
[2019-02-10] MEDS: amLODIPine 10 MG (NORVASC) TAB PO SCH (08:47)
--- NOTE | 2019-02-10 09:34 | Progress Note - Hospitalist ---
[facility] 02/10/19 9:34am: Subjective HPI/CC On Admission Date Seen by Provider: Feb 10, 2019 Time Seen by Provider: 09:28 C/C: left sided facial swelling Alexi is a 43 y/o male that presented to [facility] due to left sided facial swelling. The patients states he has had similar episodes like this before but never to this extent. He states he has a rotten wisdom tooth that has been bothering him for sometime. He usually sees the community clinic and gets prescription for amoxicillin to clear it up. He states that eating on that side is difficult and makes it worse and nothing outside of the antibiotics has helped. He denies pain at this time and denies any radiating or associating symptoms. Subjective/Events-last exam Patient is alert and oriented and in no acute distress. No family at bedside Patient denies any pain at this time, and states he is feeling a little better Changed diet has been easier for patient to eat, and is drinking without issue Urinating and having bowel movements without issue No concerns at this time ROS: denies SOB, chest pain, N/V, F/C, changes in vision, dizziness, numbness and tingling. Focused Exam Lactate Level 02/09/19 11:03: Lactic Acid Level 1.02 Objective Exam Vital Signs Vital Signs Date Time Temp Pulse Resp B/P (MAP) Pulse Ox O2 Delivery O2 Flow Rate FiO2 02/10/19 08:00 36.2 71 18 172/96 (121) 97 Room Air Capillary Refill : Less Than 3 Seconds General Appearance: No Apparent Distress, Obese HEENT: PERRL/EOMI, Moist Mucous Membranes Neck: Non Tender, Supple Respiratory: Chest Non Tender, Normal Breath Sounds, No Accessory Muscle Use, No Respiratory Distress Cardiovascular: Regular Rate, Rhythm, Normal Peripheral Pulses Gastrointestinal: Normal Bowel Sounds, Non Tender, Soft Extremity: Normal Capillary Refill, Pedal Edema, Other (radial and dorsal pedal 2/4) Neurologic/Psychiatric: Alert, Oriented x3, Normal 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 Assessment/Plan Assessment and Plan Assess & Plan/Chief Complaint Periodontal Infection - Started on Ceftriaxone and clindamycin - will continue to monitor labs - will consider followup imaging if the infection is not clearing up - soft diet, patient is tolerating without issue - start probiotics - sputum and blood cultures pending HTN urgency with baseline chronic HTN - Amlodipine 10mg QD - Nitro-pace PRN - patients blood pressures are imrpoving Psoriases - manage outpatient with PCP Clinical Quality Measures DVT/VTE Risk/Contraindication: Risk Factor Score Per Nursin RFS Level Per Nursing on Admit: 4+=Very High ELIZABETH POST MD 02/10/19 4:59pm: Assessment/Plan Assessment and Plan Assess & Plan/Chief Complaint Will continue on current antibiotics. BP improved on amlodipine. Await culture results. Supervisory-Addendum Brief Verification & Attestation Participated in pt care: history, MDM, physical Personally performed: exam, history, MDM, supervision of care Care discussed with: Medical Student Procedures: n/a Results interpretation: Verified all documentation Verification and Attestation of Medical Student E/M Service A medical student performed and documented this service in my presence. I reviewed and verified all information documented by the medical student and made modifications to such information, when appropriate. I personally performed the physical exam and medical decision making. Elizabeth Post, Feb 10, 2019,16:59 [facility] Feb 10, 2019 9:34 am ELIZABETH POST MD Feb 10, 2019 4:59 pm
[2019-02-10] MEDS: cefTRIAXone 1,000 MG/SWFI 10 ML IV PUSH IV SCH ×2 (13:52)
[2019-02-10] MEDS: LACTOBACILLUS ACIDOPHILUS (PROBIOTIC) CAPSULE PO SCH ×2 (13:55→17:38)
[2019-02-10] MEDS: NITROGLYCERIN 2% OINT 1 GM UNIT DOSE PACKET TOP PRN (21:40)
[2019-02-11] VITALS: BP 151/78
[2019-02-11 04:40] VITALS: BP 141/74
[2019-02-11] MEDS: CATHETER FLUSH 10 ML SYR IV SCH ×3 (06:31→20:47)
[2019-02-11] MEDS: LACTOBACILLUS ACIDOPHILUS (PROBIOTIC) CAPSULE PO SCH ×3 (06:32→17:55)
[2019-02-11] MEDS: CLINDAMYCIN 900 MG/50 ML IVPB 50 ML IV SCH ×3 (06:32→20:48)
[2019-02-11 07:51] VITALS: BP 143/77
[2019-02-11] MEDS: amLODIPine 10 MG (NORVASC) TAB PO SCH (09:18)
--- NOTE | 2019-02-11 11:23 | Progress Note - Hospitalist ---
Subjective HPI/CC On Admission Date Seen by Provider: Feb 11, 2019 Time Seen by Provider: 11:21 C/C: left sided facial swelling Alexi is a 43 y/o male that presented to [facility] due to left sided facial swelling. The patients states he has had similar episodes like this before but never to this extent. He states he has a rotten wisdom tooth that has been bothering him for sometime. He usually sees the community clinic and gets prescription for amoxicillin to clear it up. He states that eating on that side is difficult and makes it worse and nothing outside of the antibiotics has helped. He denies pain at this time and denies any radiating or associating symptoms. Subjective/Events-last exam Pt reports doing well. Feels that swelling is improving.No other complaints. BP improving slowly. Focused Exam Lactate Level 02/09/19 11:03: Lactic Acid Level 1.02 Objective Exam Vital Signs Vital Signs Date Time Temp Pulse Resp B/P (MAP) Pulse Ox O2 Delivery O2 Flow Rate FiO2 02/11/19 08:00 Room Air 02/11/19 07:51 36.4 70 20 143/77 (99) 97 Capillary Refill : Less Than 3 SecondsLess Than 3 Seconds General Appearance: No Apparent Distress, WD/WN HEENT: Other (edema of left face- improving) Respiratory: Lungs Clear, No Accessory Muscle Use, No Respiratory Distress Cardiovascular: Regular Rate, Rhythm, No Murmur Neurologic/Psychiatric: Alert, Oriented x3 Results/Procedures Lab Patient resulted labs reviewed. Assessment/Plan Assessment and Plan Assess & Plan/Chief Complaint Periodontal Infection - Continue Ceftriaxone and clindamycin - soft diet, patient is tolerating without issue - cont probiotics - blood cultures NGTD HTN urgency with baseline chronic HTN - Amlodipine 10mg QD - Nitro-paste PRN - patients blood pressures are imrpoving Psoriasis - manage outpatient with PCP Diagnosis/Problems Diagnosis/Problems (1) Facial cellulitis Status: Acute (2) Uncontrolled hypertension Status: Acute (3) Dental caries Status: Acute Clinical Quality Measures DVT/VTE Risk/Contraindication: Risk Factor Score Per Nursin RFS Level Per Nursing on Admit: 4+=Very High ELIZABETH BEAL MD Feb 11, 2019 11:23 am
[2019-02-11 12:00] VITALS: BP 176/97
[2019-02-11] MEDS: cefTRIAXone 1,000 MG/SWFI 10 ML IV PUSH IV SCH ×2 (13:52)
[2019-02-11 15:33] VITALS: BP 170/95
[2019-02-11 20:50] VITALS: BP 160/96
[2019-02-12 00:29] VITALS: BP 162/83
[2019-02-12 04:31] VITALS: BP 170/90
[2019-02-12] MEDS: CATHETER FLUSH 10 ML SYR IV SCH (05:35)
[2019-02-12] MEDS: CLINDAMYCIN 900 MG/50 ML IVPB 50 ML IV SCH (05:36)
[2019-02-12] MEDS: LACTOBACILLUS ACIDOPHILUS (PROBIOTIC) CAPSULE PO SCH ×2 (05:36→12:15)
[2019-02-12 08:00] VITALS: BP 193/101
[2019-02-12] MEDS: amLODIPine 10 MG (NORVASC) TAB PO SCH (08:55)
[2019-02-12] MEDS: NITROGLYCERIN 2% OINT 1 GM UNIT DOSE PACKET TOP PRN (08:56)
[2019-02-12] MEDS ORDERED: LISI40TA PO (10:34)
[2019-02-12] MEDS ORDERED: AMLO10TA7 PO (10:34)
[2019-02-12] MEDS ORDERED: CLIN300C11 PO (10:34)
[2019-02-12] MEDS ORDERED: CEFD300C3 PO (10:34)
[2019-02-12] MEDS ORDERED: hydrALAZINE (APESOLINE) 20 MG/ML VIAL IV PRN (10:45)
[2019-02-12] MEDS ORDERED: lisINopril 40 MG (PRINIVIL) TABLET PO NR (10:45)
[2019-02-12 12:00] VITALS: BP 161/84
--- NOTE | 2019-02-12 12:52 | NUR ---
Initial visit: the pt's significant other of 5 years (Opal) has two adult sons, one of which lives with them. The pt is Opal's primary caregiver. He described Opal as paralyzed from the waist down, requiring assistance in and out of bed. He also said she needs help getting her meals since the kitchen is not handicap accessible. He described a stressful home life with behavioral health dynamics and frustrations involving both sons whom the pt states do not assist their mother with transfers or meals. The pt expressed concerns that Opal is not being assisted out of bed while he is in the hospital. He said she already has a bed sore and he fears it has worsened. Frustrated, the pt expressed hopes that his phone conversation with the eldest son today has convinced him to go help Opal out of bed. The pt shared he used to love going to restoration, but the first restoration he attended had a painful experience with the window glass cutter off. He then began going to restoration in [place] where he and his dad attended. The pt described looking forward to riding their motorcycles to Tuesday and Tuesday services each week. The pt became tearful while sharing his window glass cutter off suddenly in his sleep, and since that day 4 years ago he has not returned to restoration. The pt shared he has felt like "God's joke," being bullied most of his life, struggling to make ends meet, and losing people who are important to him. He shared feelings of regret for things he said to God when he was angry. The pt shared at times he wants to but does not feel he can kill himself. He has a cousin he calls for emotional support, stating she understands him and helps him not feel as alone. Offered empathic listening, facilitated reflection concerning his personal beliefs, forgiveness and encouraged and exploration of impact that suffering has had on his spiritual wellbeing. He welcomed prayer, after which he expressed gratitude for being able to share his pain and experiences. Pt described feelings of hopefulness.
[2019-02-12] MEDS: cefTRIAXone 1,000 MG/SWFI 10 ML IV PUSH IV SCH ×2 (13:00)
[2019-02-12 13:55] VITALS: BP 161/84
--- NOTE | 2019-02-12 14:51 | Discharge Summary ---
Discharge Summary Hospital Course Problems/Dx: (1) Facial cellulitis Status: Acute (2) Uncontrolled hypertension Status: Acute (3) Dental caries Status: Acute Hospital Course Date of Admission: Feb 09, 2019 at 14:00 Admission Diagnosis : Facial cellulitis Family Physician/Provider: GracieLocal Physician Date of Discharge: 02/12/19 Discharge Diagnosis: Facial cellultitis Hospital Course: Alexi Perea is a 43yoM who presented with facial swelling and was admitted with cellulitis. He reports facial swelling for a week or two prior to his arrival. He was started on IV antibiotics with Rocephin and Clindamycin for facial cellulitis. His symptoms improved and he was discharged on oral Omnicef and Clindamycin. He needs to establish with a PCP. He was given new prescriptions for Amlodipine and Lisinopril for hypertension, as well. Labs and Pending Lab Test: Microbiology 02/09/19 Blood Culture - Preliminary, Resulted No growth Home Meds Active Cefdinir 300 Mg Capsule 300 Mg PO BID 7 Days Clindamycin HCl 300 Mg Capsule 300 Mg PO TID 7 Days Lisinopril 40 Mg Tablet 40 Mg PO DAILY 90 Days Amlodipine Besylate 10 Mg Tablet 10 Mg PO DAILY 90 Days Assessment/Pt Instructions Take medications as prescribed. Establish with a PCP. Complete your antibiotics even if you are feeling better. Return with worsening pain, swelling, fevers, or if you feel like you are getting worse. Discharge Planning: <30 minutes discharge planning Discharge Instructions Discharge Diet: No Restrictions Activity as Tolerated: Yes Discharge Physical Examination Vital Signs Vital Signs Date Time Temp Pulse Resp B/P (MAP) Pulse Ox O2 Delivery O2 Flow Rate FiO2 02/12/19 13:55 36.6 89 20 161/84 93 Room Air General Appearance: No Apparent Distress, Obese HEENT: PERRL/EOMI, Other (poor dentition, left facial swelling) Respiratory: Lungs Clear, Normal Breath Sounds, No Respiratory Distress Cardiovascular: Regular Rate, Rhythm, No Edema, No Murmur Gastrointestinal: Normal Bowel Sounds, Non Tender, Soft Extremity: Normal Inspection, Non Tender, No Pedal Edema Skin: Normal Color, Warm/Dry Neurologic/Psychiatric: Alert, Oriented x3, No Motor/Sensory Deficits Allergies: Coded Allergies: No Known Drug Allergies (Unverified , 08/07/13) Discharge Summary Date of Admission Feb 09, 2019 at 14:00 Date of Discharge Discharge Date: Feb 12, 2019 Discharge Time: 14:50 Admission Diagnosis Facial cellulitis Discharge Diagnosis Facial cellulitis (1) Facial cellulitis Status: Acute (2) Uncontrolled hypertension Status: Acute (3) Dental caries Status: Acute Clinical Quality Measures DVT/VTE Risk/Contraindication: Risk Factor Score Per Nursin RFS Level Per Nursing on Admit: 4+=Very High LENNY SUNSHINE MD Feb 12, 2019 14:51
== END 2019-02-12 13:55 | disposition home or self-care (01) | DRG 158 ==
LOC: EDUNIT# 10:47 → ER 10:49 → 4TH 14:00
PROVIDERS: ADMIT Family Medicine; ATTEND Family Medicine
DX: K12.2 Cellulitis and abscess of mouth (principal); Z68.43 Body mass index [BMI] 50.0-59.9, adult; K05.219 Aggressive periodontitis, localized, unspecified severity; I16.0 Hypertensive urgency; E66.9 Obesity, unspecified; L40.9 Psoriasis, unspecified; G47.30 Sleep apnea, unspecified; I10 Essential (primary) hypertension; E11.9 Type 2 diabetes mellitus without complications
CPT/HCPCS: 36415; 70487; 70491; 71045; 80053; 83605; 85025; 85610; 85730; 87040; 96374; 96375